=== PATIENT | male | born 1990 | race Caucasian/White ===

== ENCOUNTER 2024-08-31 13:14 | Emergency (ER) | payer BC, SELFPAY ==
[2024-08-31 13:17] VITALS: BP 119/83
[2024-08-31] MEDS: DELTASONE 50 MG PO (13:59)
[2024-08-31] MEDS: BENADRYL 50 MG IV (13:59)
[2024-08-31] MEDS: PEPCID 20 MG IV (13:59)
[2024-08-31 14:00] VITALS: BP 117/77
--- NOTE | 2024-08-31 14:02 | ED.GENMED ---
History of Present Illness
General
Chief Complaint: Allergic Reaction
Time Seen by Provider: 08/31/24 13:39
Nursing documentation reviewed up to this point in time: agreed with
History of Present Illness
History of Present Illness:
34-year-old male presents to the ER for evaluation after he had been stung by multiple wasps while mowing the lawn. He states that he immediately jumped into the pool. He then got out and used his EpiPen. After administration he noted that the
EpiPen last fall. He reports only localized itching to areas of envenomation. He reports a feeling of buzzing to his lips but no swelling per se. No difficulty with speech or swallowing. No feeling of shortness of breath. No nausea. He
states that he has had significant previous anaphylactic reaction in the past. He did not take any other medications prior to arrival.
Phy Exam
Physical Exam
Physical Exam:
Vital signs reviewed-heart rate normal, head is normocephalic atraumatic, PERRL, EOMI, mucous membranes moist, no sublingual swelling, posterior oropharynx appears normal, no stridor, no trismus, heart regular rate and rhythm without murmurs or
ectopy lungs are clear to auscultation without wheezes rales or rhonchi, extremities without edema, brisk cap refill present, bilateral legs with several areas of puncture wound and surrounding blanching erythema 4-5 cm in diameter, GCS is 15
Course
Orders/Labs/Results
Orders:
Orders
08/31/24 13:52
Diphenhydramine [Benadryl] 50 mg IV NOW STA
Famotidine [Pepcid] 20 mg IV NOW STA
Prednisone [Deltasone] 50 mg PO NOW STA
Vital Signs
Initial and Last Documented VS:
Initial Vital Signs
Temp Pulse Resp BP Pulse Ox
98.1 F 96 18 119/83 98
08/31/24 13:17 08/31/24 13:17 08/31/24 13:17 08/31/24 13:17 08/31/24 13:17
Last Documented Vital Signs
Temp Pulse Resp BP Pulse Ox
98.1 F 74 22 107/68 96
08/31/24 13:17 08/31/24 16:15 08/31/24 16:15 08/31/24 16:00 08/31/24 16:15
Comment
Comment:
I discussed with patient additional supportive treatment including Benadryl, Pepcid and prednisone. Vital signs are normal, he has overall benign appearance at current time. He agrees with plan for 4-hour observation given his prior history of
need for admission for anaphylactic reaction. He has no additional questions at the current time.
MDM/Problems Addressed
Differential Diagnosis Includes:
Differential diagnosis considered but not limited to localized allergic reaction, anaphylaxis, anaphylactic shock along with other etiologies considered
Chronic conditions affecting care:
Prior history of anaphylactic shock
*Pulse Oximetry
SaO2: 98
Oxygen Mode of Delivery: Room air
Patient hypoxic: no
*Iron Handler Interpretation
Rate: normal
Interpretation: normal
Rhythm: sinus
*Critical Care Note
Total Time (30-74mins, 75-104mins- exclusive of procedures): Not Applicable
Update Note
Update Note:
Patient resting comfortably. Vital signs stable. No recurrent symptoms. Will continue to observe for 30 more minutes and plan for discharge. Patient agrees with plan at current
Patient was observed for additional time without any recurrent symptoms. I reviewed full discharge instructions including medication usage at home and strict return precautions. He felt comfortable plan for discharge and had no questions prior to
leaving the department.
ED Attending Note
-
Portions of this chart may have been created with voice recognition software.� Occasional wrong word or��sound alike� substitutions may have occurred due to the inherent limitations of voice recognition software.
Discharge Plan
Departure
Patient Disposition: Home (Routine Discharge)
Date of Disposition: 08/31/24
Time of Disposition: 16:39
Patient with high blood pressure during this ER visit?: No
Discharge Problem:
Anaphylaxis
Instructions: Anaphylaxis - Discharge instructions
Prescriptions:
New
epinephrine [EpiPen 2-Shay] 0.3 mg/0.3 mL auto-injector
0.3 mg IM ONCE PRN (Reason: Allergic reaction) Qty: 2 0RF
prednisone 50 mg tablet
50 mg PO DAILY Qty: 4 0RF
No Action
prednisone 50 mg tablet
50 mg PO DAILY Qty: 5 0RF
epinephrine [EpiPen 2-Shay] 0.3 mg/0.3 mL auto-injector
0.3 mg IM ONCE Qty: 2 0RF
Referrals:
Lois Johnson CRNP [Family Provider, Family Practice]
Activity Restrictions/Additional Instructions:
Please take prednisone daily as prescribed for the next 4 days. Please use epinephrine for any recurrent symptoms, in particular for any lip or mouth discomfort or swelling. If you need to administer epinephrine, please return to the ER
immediately for reevaluation and further care.
Interventions
Interventions:
*Risk Screen - Suicide Last Done: 08/31/24 13:17
*General Assessment Last Done: 08/31/24 13:17
*Neglect/Abuse Screening Last Done: 08/31/24 13:17
*ED- Fall Risk Assessment Last Done: 08/31/24 16:46
*ED COVID-19 Vaccine History Last Done: 08/31/24 13:17
*Nursing Disposition Last Done: 08/31/24 16:46
ED- Cardiac Assessment Last Done: 08/31/24 14:27
ED- Pulmonary Assessment Last Done: 08/31/24 14:27
ED-Skin Assessment Last Done: 08/31/24 14:27
Discharge Date and Time
Discharge Date/Time: 08/31/24 16:47
Print Language: MALDIVIAN
[2024-08-31 15:00] VITALS: BP 110/75
[2024-08-31 16:00] VITALS: BP 107/68
== END 2024-08-31 16:47 | disposition home or self-care (01) ==
LOC: EMR 13:14
PROVIDERS: EMERGENCY PHYSICIAN Emergency Medicine; FAMILY PHYSICIAN Nurse Practitioner Gerontology
DX: R00.2 Palpitations (principal); L29.9 Pruritus, unspecified; T63.441A Toxic effect of venom of bees, accidental (unintentional), initial encounter; T78.2XXA Anaphylactic shock, unspecified, initial encounter; S81.832A Puncture wound without foreign body, left lower leg, initial encounter; S81.831A Puncture wound without foreign body, right lower leg, initial encounter; X58.XXXA Exposure to other specified factors, initial encounter; Z91.038 Other insect allergy status
CPT/HCPCS: 99284; 96374; 96375